=== PATIENT | female | born 1990 | race Caucasian/White ===

== ENCOUNTER 2020-10-17 17:57 | Emergency (ER) | payer OTHER, SELFPAY ==
--- NOTE | 2020-10-17 18:09 | W.ED.GENADLT ---
HPI - General Adult General: Stated complaint: unable to move left shoulder History of Present Illness: HPI narrative: Patient woke up with a stiff neck 2-3 days ago. [facility] has history of neck problems. Left trapezius tender and sore MD complaint: makes it hard to move left shoulder. Onset (ago): day(s) Location: neck Radiation: other (Left shoulder) Severity: moderate Severity scale (1-10): 3 Quality: aching and other (Muscle tightness) Pain Consistency: constant Exacerbating factors: movement Associated symptoms: Reports no associated symptoms; Deny chest pain, dyspnea, headache(s), nausea, rash or vomiting Treatments prior to arrival: cold therapy and heat therapy Review of Systems Const: Denies: fever(s), chills or body aches Eyes: Denies: change in vision or blurry vision ENMT: Denies: throat pain or nasal congestion Card: Denies: chest pain or dyspnea on exertion Resp: Denies: dyspnea, productive cough or non-productive cough GI: Denies: abdominal pain, nausea or vomiting Musc: Reports: neck pain (Down into the left shoulder woke up with stiff neck); Denies: extremity pain Skin/Breast: Denies: rash Neuro: Denies: headache(s) Psych: Denies: anxiety or depression Bronson/Lymph: Denies: easy bruising Physical Exam Const: COMMON NORMALS: no acute distress Neck/C-Spine: OTHER: Left trapezius is tender from base of neck down to AC area and to midline clavicle tender belly of the trapezius up superior aspect is tight. Distal neurovascular exam is normal. Resp: COMMON NORMALS: normal respiratory effort Psych: COMMON NORMALS: mental status grossly normal Coding Level of Care Code ED Senior Pricing Analyst for Lani Peralta
[2020-10-17 18:24] VITALS: BP 120/78; PULSE 71; RESP 16; TEMP 36.3; O2SAT 98; BMI 27.7
[2020-10-17] MEDS: dexamethasone 10 mg/mL INJ IM (19:29)
[2020-10-17 19:30] VITALS: BP 123/84; PULSE 87; RESP 18; O2SAT 99
== END 2020-10-17 19:33 | disposition home or self-care (01) ==
PROVIDERS: Emergency Provider Nurse Practitioner Family
DX: M54.2 Cervicalgia (principal)
CPT/HCPCS: 12345; 96372; 99281; 99283; J1100

== ENCOUNTER 2021-06-30 17:02 | Emergency (ER) | payer OTHER, SELFPAY ==
[2021-06-30 17:20] VITALS: BP 103/72; PULSE 122; RESP 18; TEMP 36.3; O2SAT 97; BMI 28.5
--- NOTE | 2021-06-30 17:32 | W.ED.FEMALGU ---
HPI - Female Genitourinary General: Chief complaint: Urogenital-Female Stated complaint: STATES R FLANK PAIN, CONFIRMED UTI, PELVIC PAIN Time Seen by Provider: 06/30/21 17:32 History of Present Illness: HPI Narrative: 31-year-old female comes in today for complaints of nausea and flank pain bilaterally. Patient states that she started feeling ill on Sunday and had did a urinalysis and a clinic which showed infection at that time. Patient was started on Macrobid but since then has had had worsening symptoms. Patient does report occasional nausea and vomiting and feeling of malaise with occasional breakthrough fever. Patient looks mildly unwell but not toxic. Patient appears in no pain. 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 MD elicited complaint: dysuria and flank pain Associated symptoms: Reports nausea Date of Last Menstrual Period: 09/12/20 Review of Systems General: Reports: 10 or more systems reviewed and unremarkable except in HPI and below GI: Reports: nausea : Reports: flank pain and dysuria PFSH ED PFSH: Social History Smoking and tobacco status: former smoker Alcohol intake: current Alcohol intake frequency: few times a week Alcohol type: wine Female Reproductive History: Date of last menstrual period: 09/12/20 Physical Exam Const: COMMON NORMALS: no acute distress and patient oriented x3 GENERAL APPEARANCE: cooperative HENMT: COMMON NORMALS: normocephalic and Normal external nose present HEAD & SCALP: normal to inspection and normocephalic NOSE: Normal external nose present MOUTH: Normal oral and palatal mucosa present Eye: GENERAL EYE: appearance normal, both eyes and all related structures Neck/C-Spine: COMMON NORMALS: full ROM Chest: COMMONS NORMALS: normal inspection of the chest Resp: COMMON NORMALS: normal respiratory effort EFFORT & INSPECTION: Yes able to speak in complete sentences Cardio: COMMON NORMALS: regular rate and regular rhythm RATE: regular rate RHYTHM: regular rhythm GI: COMMON NORMALS: Soft to palpation PALPATION: Yes Soft to palpation and Yes Tenderness to palpation present (GI) : BLADDER/KIDNEY EXAM: Yes CVA tenderness bilateral Back/Pelvis: COMMON NORMALS: thoracic and lumbar spine normal to inspection GENERAL BACK: Yes CVA tenderness Extremity: COMMON NORMALS: normal to inspection Neuro: COMMON NORMALS: patient oriented x3 and moves all extremities Psych: COMMON NORMALS: mental status grossly normal and cooperative Skin: COMMON NORMALS: no rashes or lesions noted GENERAL SKIN EXAM: no rashes or lesions noted Course Vital Signs: Vital signs: Vital Signs Temperature 97.3 F L 06/30/21 17:20 Pulse Rate 85 06/30/21 19:32 Respiratory Rate 18 06/30/21 19:32 Blood Pressure 101/66 06/30/21 19:32 Pulse Oximetry 96 06/30/21 19:32 MDM - Female MDM Narrative: Medical decision making narrative: Patient came in today for urinary tract infection with no improvement after 2 days of antibiotics. Patient was seen on Sunday and started on Macrobid for a probable cystitis. Patient reports that pain has increased in her flanks bilaterally and she thinks she may be developing infection into her kidneys now. On exam patient's abdomen soft with some mild tenderness. CVA tenderness is noted bilaterally. Skin is warm and dry. Vital signs are normal except for mild elevation in pulse at 122. Differential diagnosis includes but not limited to pyelonephritis, cystitis, sepsis. No signs of sepsis is noted at this time. Patient was given 1 g of IV Rocephin and 1 L of IV fluids. Patient was also given a dose of Toradol and hydrocodone for her discomfort. Patient reported significant improvement after fluids and medications. Patient will be continued on cefdinir twice a day for the next 7 days. Patient was also recommended to stop Macrobid. Patient reported understanding of care plan and need for follow-up or return to the ER for worsening symptoms. Lab Data: Labs: Lab Results 06/30/21 06/30/21 06/30/21 17:34 17:34 17:34 WBC 11.5 10^3/uL H 10 ^3/uL (4.0-10.0) RBC 4.25 10^6/uL 10^6 /uL (4.1-5.3) Hgb 13.2 g/dL g/dL (11.5-15.3) Hct 38.4 % % (37.0-47.0) MCV 90.4 fl fl (81-99) MCH 31.1 pg pg (28.0-34.0) MCHC 34.4 g/dL g/dL (30.0-36.0) RDW 11.9 % L % (12.1-15.1) Plt Count 178 10^3/cmm 10^3 /cmm (130-400) MPV 11.9 fL H fL (7.4-10.4) Neut % (Auto) 87.4 % % Lymph % (Auto) 5.7 % % [place] % (Auto) 6.2 % % Eos % (Auto) 0.1 % % Baso % (Auto) 0.3 % % Neut # (Auto) 10.02 10^3/uL H 1 0^3/uL (1.8-7.7) Lymph # (Auto) 0.7 10^3/uL L 10^ 3/uL (0.8-4.8) [place] # (Auto) 0.7 10^3/uL 10^3/ uL (0.2-0.9) Eos # (Auto) 0.0 10^3/uL 10^3/ uL (0.0-0.8) Baso # (Auto) 0.0 10^3/uL 10^3/ uL (0.0-0.1) Nucleated RBC % (a uto) 0 % % Nucleated RBCs # 0.0 /100WBC /100W BC Sodium 134 mmol/L L mmol /L (136-145) Potassium 3.4 mmol/L L mmol /L (3.5-5.1) Chloride 101 mmol/L mmol/L (98-107) Carbon Dioxide 23 mmol/L mmol/L (22-29) Anion Gap 13.4 (5-19) BUN 16 mg/dL mg/dL (6-20) Creatinine 1.0 mg/dL H mg/dL (0.5-0.9) GFR Calculation 64.7 mL/min L mL/ min (90-130) Glucose 162 mg/dL H mg/dL (65-115) Calculated Osmolal ity 283 mOsm/kg L mOs m/kg (285-295) Calcium 8.7 mg/dL mg/dL (8.5-10.5) Total Bilirubin 1.1 mg/dL mg/dL (0.15-1.2) AST 24 U/L U/L (0-32) ALT 20 U/L U/L (0-33) Alkaline Phosphata se 75 IU/L IU/L (35-105) Total Protein 7.2 g/dL g/dL (6.6-8.7) Albumin 3.8 g/dL g/dL (3.5-5.2) Globulin 3.4 g/dL g/dL (1.3-4.6) Urine Color Urine Appearance Urine pH Ur Specific Gravit y Urine Protein Urine Glucose (UA) Urine Ketones Urine Blood Urine Nitrate Urine Bilirubin Urine Urobilinogen Ur Leukocyte Neyda ase Urine RBC Urine WBC Ur Squamous Epith Cells Amorphous Sediment Urine Bacteria Urine Mucus Urine HCG, Qual Negative (Negative) 06/30/21 17:34 WBC RBC Hgb Hct MCV MCH MCHC RDW Plt Count MPV Neut % (Auto) Lymph % (Auto) [place] % (Auto) Eos % (Auto) Baso % (Auto) Neut # (Auto) Lymph # (Auto) [place] # (Auto) Eos # (Auto) Baso # (Auto) Nucleated RBC % (a uto) Nucleated RBCs # Sodium Potassium Chloride Carbon Dioxide Anion Gap BUN Creatinine GFR Calculation Glucose Calculated Osmolal ity Calcium Total Bilirubin AST ALT Alkaline Phosphata se Total Protein Albumin Globulin Urine Color Dark yellow (Yellow) Urine Appearance Cloudy (CLEAR) Urine pH 5 (5-7) Ur Specific Gravit y 1.015 (1.005-1.030) Urine Protein 1+ H (Negative) Urine Glucose (UA) Norm (Normal) Urine Ketones 1+ H (Negative) Urine Blood 2+ H (Negative) Urine Nitrate Negative (Negative) Urine Bilirubin 1+ H (Negative) Urine Urobilinogen 4 mg/dL H mg/dL (Negative) Ur Leukocyte Neyda ase 2+ H (Negative) Urine RBC 0-4 /hpf H /hpf (0-2) Urine WBC 25-40 /hpf H /hpf (0-5) Ur Squamous Epith Cells 5-10 /hpf H /hpf (0-5) Amorphous Sediment Not Reportable Urine Bacteria 1+ /hpf H /hpf (NONE) Urine Mucus 1+ /hpf /hpf Urine HCG, Qual Discharge Plan Discharge Patient Disposition: Home Clinical Impression: Urinary tract infection Qualifiers: Urinary tract infection type: acute pyelonephritis Qualified Code(s): N10 - Acute pyelonephritis Condition: Stable Prescriptions: New cefdinir 300 mg capsule 300 mg PO BID 7 Days Qty: 14 RF: 0 hydrocodone-acetaminophen 5-325 mg tablet 1 tab PO Q4H PRN (Reason: pain (scale score 7-10)) Qty: 5 RF: 0 ondansetron 4 mg tablet,disintegrating 4 mg PO Q8H PRN (Reason: nausea and vomiting) 3 Days Qty: 6 RF: 0 No Action etonogestrel-ethinyl estradiol [NuvaRing] 0.12-0.015 mg/24 hr ring 1 vag ring vaginal ONCE Qty: 3 RF: 3 triamcinolone acetonide 0.5 % ointment 1 applic topical DAILY Qty: 15 RF: 5 nitrofurantoin monohyd/m-cryst [Macrobid] 100 mg capsule 100 mg PO BID RF: 0 Skelaxin 800 mg tablet 400 mg PO TID PRN (Reason: muscle pain) Qty: 14 RF: 0 Discharge Orders: Discharge ED (Routine); Ordered 06/30/21 Ordered By: Roland Lyles Referrals: Margot Ohara MD [Primary Care Provider] - Discharge Diet: Usual diet Discharge Activity: Increase activity as tolerated Patient Instructions: Kidney Infection (ED), Opioid Safety Activity Restrictions/Additional Instructions: Drink plenty of fluids. Healthy diet and exercise. Use medications as directed. Follow-up with primary care for further instruction. Return to the ER for worsening symptoms. Coding Level of Care Code ED Tractor Operator Laser Leveling for Chg Fwd Exam Comprehensive
[2021-06-30] MEDS: cefTRIAXone 1,000 MG in sodium chloride 0.9% (plus) 50 ML 100 MG IV (17:48)
[2021-06-30] MEDS: sodium chloride 0.9% 1,000 ML 999 ML IV (17:48)
[2021-06-30] MEDS: ketorolac 30 mg/mL INJ 15 MG IVP (17:50)
[2021-06-30 17:59] LABS: Basophils % 0.3 %; Eosinophils % 0.1 %; Hematocrit 38.4 % (37.0-47.0); Hemoglobin 13.2 g/dL (11.5-15.3); Lymphocytes # 0.7 10^3/uL (0.8-4.8); Lymphocytes % 5.7 %; Mean Corpuscular HGB Conc 34.4 g/dL (30.0-36.0); Mean Corpuscular Hemoglobin 31.1 pg (28.0-34.0); Mean Corpuscular Volume 90.4 fl (81-99); Mean Platelet Volume 11.9 fL (7.4-10.4); Monocytes # 0.7 10^3/uL (0.2-0.9); Monocytes % 6.2 %; Neutrophils # 10.02 10^3/uL (1.8-7.7); Neutrophils % 87.4 %; Nucleated Red Blood Cells % 0 %; Platelet Count 178 10^3/cmm (130-400); Red Blood Count 4.25 10^6/uL (4.1-5.3); Red Cell Distribution Width 11.9 % (12.1-15.1); White Blood Count 11.5 10^3/uL (4.0-10.0)
[2021-06-30 18:21] LABS: Alanine Aminotransferase 20 U/L (0-33); Albumin Level 3.8 g/dL (3.5-5.2); Alkaline Phosphatase 75 IU/L (35-105); Anion Gap 13.4 (5-19); Aspartate Amino Transferase 24 U/L (0-32); Blood Urea Nitrogen 16 mg/dL (6-20); Calcium 8.7 mg/dL (8.5-10.5); Carbon Dioxide 23 mmol/L (22-29); Chloride 101 mmol/L (98-107); Globulin 3.4 g/dL (1.3-4.6); Glomerular Filtration Rate 64.7 mL/min (90-130); Glucose 162 mg/dL (65-115); Osmolality Calculated 283 mOsm/kg (285-295); Potassium 3.4 mmol/L (3.5-5.1); Sodium 134 mmol/L (136-145); Total Bilirubin 1.1 mg/dL (0.15-1.2); Total Protein 7.2 g/dL (6.6-8.7)
[2021-06-30] MEDS: HYDROcodone-acetaminophen 5-325 mg Tablet 1 TAB PO (18:55)
[2021-06-30 19:17] LABS: Glucose Urine UA Norm (Normal); Protein Urine 1+ (Negative); Specific Gravity, Urine 1.015 (1.005-1.030); Urine Appearance Cloudy (CLEAR); Urine Color Dark Yellow (Yellow); pH Urine 5 (5-7)
[2021-06-30 19:18] LABS: Add Urine Culture? Yes; Add Urine Microscopic? YES; Bacteria Urine 1+ /hpf; Bilirubin Urine 1+ (Negative); Blood Urine 2+ (Negative); Ketones Urine 1+ (Negative); Leukocyte Esterase Urine 2+ (Negative); Mucus Urine 1+ /hpf; Nitrate Urine Negative (Negative); RBC Urine 0-4 /hpf (0-2); Urobilinogen Urine 4 mg/dL (Negative); WBC Urine 25-40 /hpf (0-5)
[2021-06-30 19:32] VITALS: BP 101/66; PULSE 85; RESP 18; O2SAT 96
== END 2021-06-30 19:49 | disposition home or self-care (01) ==
PROVIDERS: Emergency Provider Nurse Practitioner Family; PCP Family Medicine
DX: N10 Acute pyelonephritis (principal); Z87.891 Personal history of nicotine dependence
CPT/HCPCS: 80053; 81001; 81025; 85025; 87086; 96365; 96375; 99284; J0696; J1885; J7030

== ENCOUNTER → 2022-03-24 13:16 | Outpatient (BNVA) | payer OTHER, SELFPAY | PROVIDERS: PCP Family Medicine; Visit Provider Emergency Medicine | DX: M25.561 Pain in right knee (principal) | CPT/HCPCS: 73562 ==

== ENCOUNTER → 2022-04-13 13:38 | Outpatient (BNVA) | payer OTHER, SELFPAY | PROVIDERS: PCP Family Medicine; Visit Provider Nurse Practitioner Family | DX: M25.561 Pain in right knee (principal) | CPT/HCPCS: 73560; 73565 ==

== ENCOUNTER 2022-04-26 06:00 | Outpatient (RCR) | payer OTHER, SELFPAY | END 2022-05-17 23:59 | disposition home or self-care (01) | LOC: MPT 06:00 | PROVIDERS: PCP Family Medicine; Visit Provider Nurse Practitioner Family | DX: M25.561 Pain in right knee (principal) | CPT/HCPCS: 97110; 97161; G0283 ==

== ENCOUNTER 2022-05-18 06:00 | Outpatient (RCR) | payer OTHER, SELFPAY | END 2022-06-16 23:59 | disposition home or self-care (01) | LOC: MPT 06:00 | PROVIDERS: PCP Family Medicine; Visit Provider Nurse Practitioner Family | DX: M25.561 Pain in right knee (principal) | CPT/HCPCS: 97110; 97140; G0283 ==

== ENCOUNTER 2022-06-17 06:00 | Outpatient (RCR) | payer OTHER, SELFPAY | END 2022-07-17 23:59 | disposition home or self-care (01) | LOC: MPT 06:00 | PROVIDERS: PCP Family Medicine; Visit Provider Nurse Practitioner Family | DX: M25.561 Pain in right knee (principal) | CPT/HCPCS: 97110; G0283 ==

== ENCOUNTER → 2023-08-07 11:24 | Outpatient (BNVA) | payer OTHER, SELFPAY | PROVIDERS: PCP Family Medicine; Referring Provider Family Medicine; Visit Provider Surgery | DX: K29.70 Gastritis, unspecified, without bleeding (principal); B96.81 Helicobacter pylori [H. pylori] as the cause of diseases classified elsewhere; K52.9 Noninfective gastroenteritis and colitis, unspecified; R10.9 Unspecified abdominal pain; A04.8 Other specified bacterial intestinal infections | CPT/HCPCS: 99203 ==

== ENCOUNTER 2023-08-15 06:04 | Outpatient (CLI) | payer OTHER, SELFPAY ==
--- NOTE | 2023-08-15 06:15 | US_ITS ---
WS: [id number] Complete ABDOMINAL ULTRASOUND HISTORY: RUQ abdominal pain COMPARISON: 09/17/2018 Liver: 13.7 cm in length. Normal size liver and echogenicity. No bile duct dilatation or mass. Portal Vein: Normal hepatopetal flow with monophasic waveform. Gallbladder: Normally distended gallbladder with no stones or wall thickening. CBD: 0.3 cm Pancreas: Normal size and echogenicity. Right kidney: 10.3 cm x 4.9 x 4.3 cm. Cortex: 1.2 cm. Normal size and echogenicity. No hydronephrosis or mass. Left kidney: 10.7 cm x 5.4 cm x 5.4 cm. Cortex: 1.1 cm. Normal size and echogenicity. No hydronephrosis or mass. Spleen: Normal. Aorta and IVC: Unremarkable abdominal aorta and IVC. Impression: Normal complete abdomen ultrasound.
== END 2023-08-15 06:05 | disposition home or self-care (01) ==
PROVIDERS: PCP Family Medicine; Visit Provider Surgery
DX: R10.11 Right upper quadrant pain (principal)
CPT/HCPCS: 76700